=== PATIENT | female | born 1990 | race Caucasian/White ===

== ENCOUNTER 2020-09-01 18:21 | Inpatient (IN) | payer BC ==
[~2020-09-01] VITALS: Ht 160 cm; Wt 85.5 kg
[2020-09-01] MEDS ORDERED: ONDANSETRON 2MG/ML, 2ML IVPush PRN (19:00)
[2020-09-01] MEDS ORDERED: SODIUM CITRATE/CITRIC ACID 30 ML UDC PO PRN (19:00)
[2020-09-01] MEDS ORDERED: CALCIUM CARBONATE 500 MG TAB.CHEW PO PRN (19:00)
[2020-09-01] MEDS ORDERED: OXYTOCIN 30U/ 0.9% NaCL 500ML 500 ML IV PRN (19:00)
[2020-09-01] MEDS ORDERED: TERBUTALINE 1 MG/ML, 1ML IVPush PRN (19:00)
[2020-09-01] MEDS ORDERED: FENTANYL PF 100 MCG/2ML IV PRN (19:00)
[2020-09-01] MEDS ORDERED: TERBUTALINE 1 MG/ML, 1ML SQ PRN (19:00)
[2020-09-01] MEDS: D5%-LACTATED RINGERS 1,000 ML IV SCH (19:00)
[2020-09-01] MEDS: LACTATED RINGERS 1,000 ML IV SCH (19:00)
[2020-09-01] MEDS ORDERED: METOCLOPRAMIDE 5 MG/ML, 2ML IVPush PRN (19:00)
[2020-09-01] MEDS ORDERED: OXYTOCIN 30U/ 0.9% NaCL 500ML 500 ML IV ONE (19:00)
[2020-09-01 19:25] LABS: BASOPHILS % (AUTO) 0 % (0-1); EOSINOPHILS % (AUTO) 1 % (1-7); LYMPHOCYTES % (AUTO) 16 % (22-44); MEAN CORPUSCULAR HEMOGLOBIN 31.3 pg (27.0-34.8); MEAN CORPUSCULAR HGB CONC 33.8 g/dL (32.4-35.8); MEAN PLATELET VOLUME 8.9 fL (7.4-10.4); MONOCYTES % (AUTO) 9 % (2-9); NEUTROPHILS % (AUTO) 74 % (42-75); PLATELET COUNT 213 x10^3/uL (130-400); RED BLOOD COUNT 3.88 x10^6/uL (3.82-5.3)
[2020-09-01 19:29] LABS: MD NO
[2020-09-01] MEDS ORDERED: CALCIUM CARBONATE 500 MG TAB.CHEW ONE ×2 (19:42)
[2020-09-01] MEDS ORDERED: LIDOCAINE 1%, 20ML ONE (19:42)
[2020-09-01] MEDS ORDERED: NEWBORN KIT ONE (19:42)
[2020-09-01] MEDS ORDERED: MISOPROSTOL 200 MCG TABLET ONE (19:42)
[2020-09-01] MEDS ORDERED: OXYTOCIN 30U/ 0.9% NaCL 500ML 500 ML ONE (19:42)
[2020-09-01 20:45] VITALS: BP 118/69
[2020-09-02] MEDS ORDERED: ZOLPIDEM 5MG TABLET ONE (00:27)
[2020-09-02] MEDS ORDERED: FENTANYL PF 100 MCG/2ML ONE ×4 (05:56→10:12)
[2020-09-02] MEDS: FENTANYL PF 100 MCG/2ML IVPush PRN ×4 (06:04→10:19)
[2020-09-02] MEDS: D5%-LACTATED RINGERS 1,000 ML IV SCH (07:10)
[2020-09-02] MEDS: LACTATED RINGERS 1,000 ML IV SCH (10:19)
[2020-09-02] MEDS ORDERED: FENTANYL/BUPIV./NS/PF 250 ML EPIDCONT ONE (10:30)
[2020-09-02] MEDS ORDERED: LIDOCAINE/PF 1.5%-EPI 1:200K, 30ML ONE (10:34)
[2020-09-02] MEDS ORDERED: FENTANYL/BUPIV./NS/PF 250 ML EPIDCONT SCH (11:30)
[2020-09-02] MEDS ORDERED: LACTATED RINGERS 1,000 ML IV SCH (11:30)
[2020-09-02] MEDS ORDERED: EPHEDRINE 50 MG/ML, 1ML IVPush PRN (11:30)
[2020-09-02] MEDS ORDERED: LACTATED RINGERS 1,000 ML IVBOLUS PRN (11:30)
[2020-09-02] MEDS ORDERED: NALOXONE 0.4 MG/ML, 1ML IVPush PRN (11:30)
[2020-09-02] MEDS ORDERED: IBUPROFEN 600 MG TABLET ONE (15:07)
[2020-09-02] MEDS ORDERED: OXYTOCIN 30U/ 0.9% NaCL 500ML 500 ML ONE (15:07)
[2020-09-02] MEDS: OXYTOCIN 30U/ 0.9% NaCL 500ML 500 ML IV SCH (15:22)
[2020-09-02] MEDS: IBUPROFEN 600 MG TABLET PO PRN ×2 (15:22→21:49)
[2020-09-02] MEDS ORDERED: METHYLERGONOVINE 0.2 MG/ML IM PRN (15:30)
[2020-09-02] MEDS ORDERED: ONDANSETRON 2MG/ML, 2ML IV PRN (15:30)
[2020-09-02] MEDS ORDERED: HYDROcodone/APAP 5/325 TABLET PO PRN ×2 (15:30)
[2020-09-02] MEDS ORDERED: BISACODYL 10 MG SUPP PR PRN (15:30)
[2020-09-02] MEDS ORDERED: SIMETHICONE 80 MG CHEW TAB PO PRN (15:30)
[2020-09-02] MEDS ORDERED: MISOPROSTOL 200 MCG TABLET PR PRN (15:30)
[2020-09-02] MEDS ORDERED: OXYcodone/APAP 5/325MG TABLET ONE (16:49)
[2020-09-02 17:10] VITALS: BP 108/60
[2020-09-02] MEDS: OXYcodone/APAP 5/325MG TABLET PO PRN ×2 (17:25→21:50)
[2020-09-02] MEDS ORDERED: OXYcodone/APAP 5/325MG TABLET PO PRN (17:30)
[2020-09-02 19:30] VITALS: BP 102/64
[2020-09-02 22:36] LABS: BASOPHILS % (AUTO) 1 % (0-1); EOSINOPHILS % (AUTO) 0 % (1-7); LYMPHOCYTES % (AUTO) 8 % (22-44); MEAN CORPUSCULAR HGB CONC 33.6 g/dL (32.4-35.8); MEAN PLATELET VOLUME 9.1 fL (7.4-10.4); MONOCYTES % (AUTO) 10 % (2-9); NEUTROPHILS % (AUTO) 82 % (42-75); PLATELET COUNT 182 x10^3/uL (130-400); RED BLOOD COUNT 3.29 x10^6/uL (3.82-5.3); RED CELL DISTRIBUTION WIDTH 13.9 % (9.6-15.2)
[2020-09-02 22:54] LABS: MD NO
[2020-09-03 00:09] VITALS: BP 103/67
[2020-09-03] MEDS: OXYTOCIN 30U/ 0.9% NaCL 500ML 500 ML IV SCH ×3 (01:30→21:30)
[2020-09-03] MEDS: OXYcodone/APAP 5/325MG TABLET PO PRN ×4 (04:12→20:59)
[2020-09-03] MEDS: IBUPROFEN 600 MG TABLET PO PRN ×4 (04:13→23:37)
[2020-09-03 05:00] VITALS: BP 103/63
[2020-09-03 06:42] VITALS: BP 109/68
[2020-09-03 08:10] VITALS: BP 99/64
[2020-09-03] MEDS: DOCUSATE 100 MG CAPSULE PO PRN ×2 (08:26→20:59)
[2020-09-03] MEDS: PRENATAL VIT/IRON/FA 1 EACH TABLET PO SCH (08:26)
[2020-09-03 12:35] VITALS: BP 108/67
[2020-09-03 20:00] VITALS: BP 119/73
[2020-09-03] MEDS: CALCIUM CARBONATE 500 MG TAB.CHEW PO PRN (21:12)
[2020-09-04] MEDS ORDERED: CALCIUM CARBONATE 500 MG TAB.CHEW ONE (01:41)
[2020-09-04] MEDS: CALCIUM CARBONATE 500 MG TAB.CHEW PO PRN (01:46)
[2020-09-04] MEDS: OXYcodone/APAP 5/325MG TABLET PO PRN ×2 (04:42→11:26)
[2020-09-04] MEDS: IBUPROFEN 600 MG TABLET PO PRN ×2 (05:38→11:47)
[2020-09-04 07:30] VITALS: BP 93/57
[2020-09-04] MEDS: OXYTOCIN 30U/ 0.9% NaCL 500ML 500 ML IV SCH (08:59)
[2020-09-04] MEDS: PRENATAL VIT/IRON/FA 1 EACH TABLET PO SCH (09:40)
[2020-09-04] MEDS: DOCUSATE 100 MG CAPSULE PO PRN (09:40)
[2020-09-04] MEDS ORDERED: MEASLES,MUMPS&RUBELLA VACC/PF 0.5 ML SQ-VACC ONE ×2 (14:39→15:00)
== END 2020-09-04 14:46 | disposition home or self-care (01) | DRG 807 ==
LOC: LDOP 18:21 → LDIP 19:10 → 2NW 09-02 16:53
PROVIDERS: ADMIT Obstetrics & Gynecology; ATTEND Obstetrics & Gynecology
PROC: 10E0XZZ Delivery of Products of Conception, External Approach (ICD-10-PCS; principal; 2020-09-02)
PROC: 0KQM0ZZ Repair Perineum Muscle, Open Approach (ICD-10-PCS; 2020-09-02)
PROC: 3E0R3BZ Introduction of Anesthetic Agent into Spinal Canal, Percutaneous Approach (ICD-10-PCS; 2020-09-02)
PROC: 00HU33Z Insertion of Infusion Device into Spinal Canal, Percutaneous Approach (ICD-10-PCS; 2020-09-02)
PROC: 3E0234Z Introduction of Serum, Toxoid and Vaccine into Muscle, Percutaneous Approach (ICD-10-PCS; 2020-09-04)
DX: O70.1 Second degree perineal laceration during delivery (principal); Z37.0 Single live birth; Z20.828 Contact with and (suspected) exposure to other viral communicable diseases; Z3A.36 36 weeks gestation of pregnancy; Z23 Encounter for immunization
CPT/HCPCS: 36415; 87806; J3490; J7121; 84112; 85025; 86592; 86762; 86850; 86900; 87340; 87635; G0378; J3010; G0475; J2590; J7120